=== PATIENT | male | born 1975 | race Two or more races ===

== ENCOUNTER 2023-10-06 09:53 | Outpatient (CLI) | payer OTHER ==
[2023-10-06 11:10] LABS: PH,URINE 5.5 (5.0-8.0); URINE APPEARANCE Clear; URINE BILIRRUBIN Negative (NEGATIVE); URINE BLOOD Negative; URINE COLOR Yellow; URINE GLUCOSE Negative (NEGATIVE); URINE KETONE Negative (NEGATIVE); URINE LEUKOCYTE Negative; URINE NITRATE Negative; URINE PROTEIN Trace (NEGATIVE); URINE UROBILINOGEN 0.2 E.U./dl
[2023-10-06 11:15] LABS: HEMOGLOBIN 14.8 g/dL (13-16.00); MEAN CELL VOLUME 82.6 fL (80.0-100.00); MEAN CORPUSCULAR HEMOGLOBIN 28.5 pg (27.00-32.0); MEAN CORPUSCULAR HGB CONC 34.4 g/dl (32.0-36.0); PLATELET COUNT 275 K/uL (150-450); RED BLOOD COUNT 5.21 M/uL (4.00-6.00); RED CELL DISTRIBUTION WIDTH 14.5 % (11.5-14.5)
[2023-10-06 11:37] LABS: INR 1.06; PARTIAL THROMBOPLASTIN TIME 28.3 SECONDS (22.0-34.0); PROTHROMBIN TIME 11.1 SECONDS (9.0-11.5)
[2023-10-06 11:47] LABS: ALBUMIN 3.9 gm/dL (3.4-5.0); BILIRUBIN TOTAL 0.72 mg/dL (0.3-1.2); CALCIUM 9.4 mg/dL (8.5-10.1); CREATININE SERUM 0.93 mg/dL (0.70-1.30); GFR 86.72; GLOBULINA 3.9 G/DL (2.4-3.5); POTASSIUM 5.19 mEq/L (3.5-5.1); TOTAL PROTEIN 7.8 gm/dL (6.4-8.2)
[2023-10-06 11:49] LABS: URINE BACTERIA 3.7 uL (0.0-1933)
[2023-10-08] MEDS ORDERED: METFORMIN HCL500 M3 PO (13:20)
[2023-10-08] MEDS ORDERED: LIPITOR20 MG PO (13:21)
[2023-10-08] MEDS ORDERED: TENORMIN50 M1 PO (13:21)
== END 2023-10-06 10:09 | disposition home or self-care (01) ==
LOC: LAB 09:53
PROVIDERS: ATTEND Orthopaedic Surgery Hand Surgery
DX: E11.9 Type 2 diabetes mellitus without complications (principal); E78.00 Pure hypercholesterolemia, unspecified; E78.3 Hyperchylomicronemia; D65 Disseminated intravascular coagulation [defibrination syndrome]; D66 Hereditary factor VIII deficiency; N39.0 Urinary tract infection, site not specified; Z01.810 Encounter for preprocedural cardiovascular examination

== ENCOUNTER 2023-10-09 07:47 | Day surgery (SDC) | payer OTHER ==
[~2023-10-09] VITALS: Ht 188 cm; Wt 95.3 kg
[~2023-10-09 07:47] MED LIST: LIPITOR20 MG PO; METFORMIN HCL500 M3 PO; TENORMIN50 M1 PO
[2023-10-09] MEDS ORDERED: CEFAZOLIN SODIUM 1,000 MG VIAL ONE (19:48)
[2023-10-09] MEDS ORDERED: SUGAMMADEX SODIUM 200 MG/2 ML VIAL IV ONE (21:28)
== END 2023-10-10 00:20 | disposition home or self-care (01) ==
LOC: CIR.AMB 07:47
PROVIDERS: ATTEND Orthopaedic Surgery Hand Surgery
DX: M66.342 Spontaneous rupture of flexor tendons, left hand (principal); E11.9 Type 2 diabetes mellitus without complications; I10 Essential (primary) hypertension